=== PATIENT | male | born 1990 | race African-American/Black ===

== ENCOUNTER → 2022-03-21 | Day surgery (SDC) | payer MEDICARE, OTHER ==
[~2022-03-21] VITALS: Ht 180.3 cm; Wt 104.6 kg
[~2022-03-21] MED LIST: ACET-2178 PO; ARIP15TA14 PO; CALC355O19 PO; CHOL2000 PO; DOCU250C69 PO; EPHEDRINE SULFATE 50MG/ML VIAL ONE; GLYCOPYRROLATE 0.2 MG/ML 2ML VIAL ONE; IBUP-2030 PO; LACTATED RINGERS 1,000 ML IV SCH; LEVE10006 PO; LIDOCAINE HCL 1% 10 MG/ML 10ML VIAL ONE; LINA290C PO; LOPE2CAP14 PO; MAG355OR42 PO; MIDAZOLAM HCL 2 MG/2 ML VIAL ONE; MOM PO; PHENYLEPHRINE HCL 10 MG/ML 1ML (IV VIAL) IV ONE; POLY17PO19 PO; PROPOFOL 200MG/20ML VIAL IV ONE; TOPI200T15 PO; VITS42.53 TP; [UNRECOGNIZED DRUG - CODE] PO; [UNRECOGNIZED DRUG - CODE] PO
== END | disposition home or self-care (01) ==
LOC: OR 08:17
PROVIDERS: ATTEND Internal Medicine Gastroenterology
DX: K59.09 Other constipation (principal); K64.8 Other hemorrhoids; K63.89 Other specified diseases of intestine; J45.909 Unspecified asthma, uncomplicated; Q87.11 Prader-Willi syndrome; Z79.899 Other long term (current) drug therapy; Z98.890 Other specified postprocedural states; Z20.822 Contact with and (suspected) exposure to COVID-19
CPT/HCPCS: 45378; 87426; J2250; J2370; J2704; J3490